=== PATIENT | male | born 1935 | race Caucasian/White ===

== ENCOUNTER 2016-10-02 04:01 | Emergency (ER) | payer MEDICARE, BC ==
--- NOTE | 2016-10-02 04:20 | ERNOTE ---
Chest Pain/Cardiac HPI Chief Complaint: Chest Pain Time Seen by Provider: 10/02/16 04:18 Source: patient Exam Limitations: no limitations Allergies/Adverse Reactions: Allergies No Known Allergies Allergy (Verified 10/02/16 06:28) Home Medications: HOME MEDICATIONS Azithromycin [Zithromax] 250 mg PO DAILY #4 tablet 10/02/16 [Last Taken Unknown] Methylprednisolone [Medrol Dosepak] 4 mg PO DAILY #21 tab.ds.pk 10/02/16 [Last Taken Unknown] Narrative: Pt had sharp left sided chest pain this evening, EMS admistered nitro and pain is relieved prior to arrival in ED. Timing: resolved prior to arrival - after nitro given by EMS Severity/Quality: moderate, sharp, stabbing Location: left chest Chest Pain Radiation: no radiation Activities at Onset: none Modifying Factors - Improves: Present: nitroglycerin Modifying Factors - Worsens: Present: breathing, coughing, movement Associated Symptoms: Present: cough Review of Systems - Review of Systems Constitutional: Present: fever EYE: Present: no symptoms reported ENT: Present: nasal drainage Respiratory: Present: shortness of breath, cough Cardiology: Present: See HPI Gastrointestinal/Abdominal: Present: no symptoms reported Genitourinary: Present: no symptoms reported Musculoskeletal: Present: no symptoms reported Skin: Present: no symptoms reported Neurological: Present: no symptoms reported Endocrine: Present: no symptoms reported Hematologic/Lymphatic: Present: no symptoms reported Psych: Present: no symptoms reported - Patient's Past Medical History Patient History - Cardiac/Respiratory: Arrhythmias Patient History - Surgical Procedures: Pacemaker - Social History Smoking Status: Light tobacco smoker Physical Exam - Physical Exam General Appearance: Present: wd/wn, alert, no apparent distress Ears, Nose, Throat: Present: nasal congestion, normal pharynx Neck: Present: normal inspection, nontender Respiratory: Present: no respiratory distress, normal breath sounds, decreased breath sounds - bilateral Cardiovascular/Chest: Present: regular rate, rhythm, no murmur, normal peripheral pulses Back Exam: Present: normal inspection, normal range of motion Extremity Exam: Present: normal inspection, non-tender, no edema Neurological Exam: Present: alert, oriented, normal mood/affect, no motor/ sensory deficits Skin Exam: Present: normal color, warm/dry Lymphatic Exam: Present: no adenopathy ED Progress - Results and Orders Patient's Lab Results:: I have reviewed the patient's lab results. Results and Orders: Laboratory Tests 10/02/16 10/02/16 04:37 04:37 WBC 14.4 H Hgb 10.2 L Hct 29.6 L Plt Count 189 Neutrophils % 82.7 H Sodium 136 Potassium 3.7 Chloride 102 BUN 9 Creatinine 0.99 Calcium 8.3 Total Bilirubin 0.8 AST 13 ALT 14 L Alkaline Phosphatase 73 Troponin I Less than 0.017 Total Protein 6.3 Albumin 3.1 L - Vital Signs Patient's Vital Signs:: I have reviewed the patient's vital signs. - EKG EKG: other - paced rhythm EKG read: Interp. by me - X-Ray X-Ray #1 X-Ray: chest Interpretation: Interp. by me X-ray Comments: No infiltrate or effusion Departure - Departure Clinical Impression: Acute exacerbation of chronic obstructive bronchitis Disposition: Home Follow Up Needed Condition: Good Instructions: Chronic Obstructive Pulmonary Disease Exacerbation, [id number] Additional Instructions: begin medrol dose pack today. Start antibiotics tomorrow as the first dose was given to you in the ER. follow up with your regular doctor in 5-7 days or sooner if not improving. Prescriptions: Azithromycin [Zithromax] 250 mg PO DAILY #4 tablet Methylprednisolone [Medrol Dosepak] 4 mg PO DAILY #21 tab.ds.pk
[2016-10-02 04:36] LABS: Hematocrit 29.6 % (42.0-52.0); Hemoglobin 10.2 gm/dL (13.5-18.0); Mean Cell Volume 91.4 fl (78-100); Mean Corpuscular Hemoglobin 31.5 pg (27-31); Mean Corpuscular Hgb Conc 34.5 g/dl (32-36); Mean Platelet Volume 9.7 fl (6.0-9.5); NRBC# 0.1 k/mm3 (0-1); Neutrophil # 11.9 K/mm3 (1.3-6.0); Neutrophil % 82.7 % (42-75.0); Platelet Count 189 K/mm3 (150-450); Red Blood Count 3.24 M/mm3 (4.7-6.0); Red Cell Distribution Width 15.7 % (11.5-14.0); White Blood Count 14.4 K/mm3 (4.0-10.5)
[2016-10-02 04:54] LABS: ALT 14 U/L (19-67); AST 13 U/L (0-48); Albumin * 3.1 gm/dl (3.4-5.0); Alkaline Phosphatase * 73 U/L (50-170); Anion Gap 13.4 mmol/L (6.8-13.8); BUN/Creatinine Ratio 9.1 (9.0-21.6); Bilirubin, Total 0.8 mg/dL (0.0-1.1); Blood Urea Nitrogen 9 mg/dL (6-23); Ca. Corrected For Albumin 8.7 mg/dL (8.4-10.2); Calcium * 8.3 mg/dL (7.9-10.9); Carbon Dioxide 24.3 mmol/L (24-32.6); Chloride 102 mmol/L (97-106); Glucose * 100 mg/dL (70-110); Potassium 3.7 mmol/L (3.4-4.6); Sodium 136 mmol/L (132-142); Total Protein 6.3 gm/dL (6.2-8.2)
[2016-10-02 04:56] LABS: Troponin I Less than 0.017 ng/ml (0.00-0.10)
[2016-10-02] MEDS ORDERED: AZITHROMYCIN 250 MG TABLET PO ONE (06:34)
[2016-10-02] MEDS ORDERED: AZITHROMYCIN 250 MG TABLET ONE (06:51)
[2016-10-02 06:53] VITALS: BP 130/57
== END 2016-10-02 07:08 | disposition home or self-care (01) ==
LOC: ER 04:01
DX: J44.1 Chronic obstructive pulmonary disease with (acute) exacerbation (principal); F17.210 Nicotine dependence, cigarettes, uncomplicated; Z95.0 Presence of cardiac pacemaker

== ENCOUNTER 2017-05-20 20:55 | Emergency (ER) | payer MEDICARE, BC ==
--- NOTE | 2017-05-20 21:13 | ERNOTE ---
Syncope ER HPI Stated Complaint: FALL HEAD /LOSS OF CON Time Seen by Provider: 05/20/17 21:06 Source: patient Exam Limitations: no limitations Immunizations: IMMUNIZATION HX Immunizations Up to Date Yes History of Influenza Vaccine Yes Hx Pneumococcal Vaccination Yes Allergies/Adverse Reactions: Allergies No Known Allergies Allergy (Verified 05/20/17 21:19) Home Medications: HOME MEDICATIONS Azithromycin [Zithromax] 250 mg PO DAILY #4 tablet 10/02/16 [Last Taken Unknown] Methylprednisolone [Medrol Dosepak] 4 mg PO DAILY #21 tab.ds.pk 10/02/16 [Last Taken Unknown] traMADol HCL [Ultram] 50 - 100 mg PO QID PRN #20 tab 05/21/17 [Last Taken Unknown] - History of Present Illness Narrative: Pt states he was going out the back door and tripped somehow striking his face. He believes he had short LOC. He drove himself to the ED Prior Episodes: Present: single episode today Symptoms prior to episode: Present: none Activity at time of episode: Present: standing Character of event: Present: brief (seconds) Location of Injury: Present: neck Current Symptoms: Present: back to normal Review of Systems - Review of Systems Constitutional: Absent: recent illness EYE: Absent: eye pain ENT: Present: no symptoms reported Respiratory: Present: no symptoms reported Cardiology: Present: no symptoms reported - Patient's Past Medical History Patient History - Medical: Arthritis Patient History - Cardiac/Respiratory: Asthma Patient History - Cancer: Skin Patient History - Surgical Procedures: Pacemaker Patient History - Other: None - Social History Living Situations: other Psych History: No pertinent hx Alcohol Use: none - Immunizations Immunizations Up to Date: Yes Hx Pneumococcal Vaccination: Yes History of Influenza Vaccine: Yes Physical Exam - Physical Exam General Appearance: Present: wd/wn, alert, no apparent distress Head Exam: Present: contusions, ecchymosis - nose and left forehead/ jain. Absent: active bleeding, Bustos's Sign, lacerations, raccoon eyes, swelling Eye Exam: Normal inspection: bilateral, PERRL: bilateral, EOMI: bilateral Neck: Present: normal inspection, nontender, supple, full range of motion Respiratory: Present: no respiratory distress Back Exam: Present: normal inspection, normal range of motion, no CVA tenderness , no vertebral tenderness Extremity Exam: Present: normal range of motion, no edema. 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 Results and Orders: Laboratory Tests 05/20/17 05/20/17 05/20/17 21:18 21:18 22:35 WBC 8.3 Hgb 11.6 L Hct 33.6 L Plt Count 221 Sodium 140 Potassium 4.1 Chloride 102 Carbon Dioxide 28.3 Anion Gap 13.8 BUN 11 Creatinine 1.27 Est GFR (Non-Af Amer) 58 L D Random Glucose 107 Calcium 8.3 Total Bilirubin 0.8 AST 13 ALT 16 L Alkaline Phosphatase 76 Total Protein 6.8 Albumin 4.2 Urine Color Yellow Urine Appearance Clear Urine pH 6.0 Ur Specific [place] 1.010 Urine Protein Negative Urine Glucose (UA) Negative Urine Ketones Negative Urine Blood Negative Urine Nitrate Negative Urine Bilirubin Negative Urine Urobilinogen Normal Ur Leukocyte Esterase Negative Urine RBC None seen Urine WBC None seen Ur Epithelial Cells None seen Urine Bacteria Trace Urine Culture Comments No culture indicated Ethyl Alcohol Less than 3.0 - Vital Signs Patient's Vital Signs:: I have reviewed the patient's vital signs. - CT/Ultrasound CT/Ultrasound Narrative: CT head: No acute intracranial pathology. Chronic findings: encephalomalacia consistent with remote infarctions volume loss appropriate with age old healed right zygomatic arch fracture Nasal bone fracture with displacement and angulation of unknown age Sinus mucosal thickening - Progress/Reassessment Progress:: Improved Departure Clinical Impression: Nasal bone fracture Qualifiers: Encounter type: initial encounter Fracture type: closed Qualified Code(s): S02.2XXA - Fracture of nasal bones, initial encounter for closed fracture Abrasion of face Qualifiers: Encounter type: initial encounter Qualified Code(s): S00.81XA - Abrasion of other part of head, initial encounter - Departure Disposition: Home Follow Up Needed Condition: Good Instructions: Nasal Fracture, Abrasion, [id number] Additional Instructions: Call Dr. Collins's office for follow up on your nose. Referrals: Umm Hollis MD [Primary Care Provider] - Prescriptions: traMADol HCL [Ultram] 50 - 100 mg PO QID PRN #20 tab PRN Reason: Pain
[2017-05-20 21:20] LABS: Hematocrit 33.6 % (42.0-52.0); Hemoglobin 11.6 gm/dL (13.5-18.0); Mean Cell Volume 93.3 fl (78-100); Mean Corpuscular Hemoglobin 32.2 pg (27-31); Mean Corpuscular Hgb Conc 34.5 g/dl (32-36); Mean Platelet Volume 9.7 fl (6.0-9.5); NRBC# 0.1 k/mm3 (0-1); Neutrophil # 5.2 K/mm3 (1.3-6.0); Neutrophil % 62.6 % (42-75.0); Platelet Count 221 K/mm3 (150-450); Red Cell Distribution Width 15.9 % (11.5-14.0); White Blood Count 8.3 K/mm3 (4.0-10.5)
[2017-05-20 21:34] LABS: ALT 16 U/L (19-67); AST 13 U/L (0-48); Albumin * 4.2 gm/dl (3.4-5.0); Alkaline Phosphatase * 76 U/L (50-170); Anion Gap 13.8 mmol/L (6.8-13.8); BUN/Creatinine Ratio 8.7 (9.0-21.6); Bilirubin, Total 0.8 mg/dL (0.0-1.1); Blood Urea Nitrogen 11 mg/dL (6-23); Ca. Corrected For Albumin 7.8 mg/dL (8.4-10.2); Calcium * 8.3 mg/dL (7.9-10.9); Carbon Dioxide 28.3 mmol/L (24-32.6); Chloride 102 mmol/L (97-106); Glucose * 107 mg/dL (70-110); Potassium 4.1 mmol/L (3.4-4.6); Sodium 140 mmol/L (132-142); Total Protein 6.8 gm/dL (6.2-8.2)
[2017-05-20 22:44] LABS: Urine Bilirubin Negative (NEGATIVE); Urine Blood Negative /ul (NEGATIVE); Urine Ketone Negative (NEGATIVE); Urine Nitrite Negative (NEGATIVE); Urine Protein Negative (NEGATIVE); Urine Urobilinogen Normal (NORMAL)
[2017-05-20 22:50] LABS: Urine Appearance Clear; Urine Bacteria TRACE; Urine Color Yellow; Urine RBC None Seen /hpf (0-5); Urine WBC None Seen /hpf (0-5)
[2017-05-20 23:52] VITALS: BP 145/60
[2017-05-20] MEDS ORDERED: traMADol HCL 50 MG TABLET PO ONE (23:58)
[2017-05-21] MEDS ORDERED: traMADol HCL 50 MG TABLET ONE (00:02)
== END 2017-05-21 00:09 | disposition home or self-care (01) ==
LOC: ER 20:55
DX: S02.2XXA Fracture of nasal bones, initial encounter for closed fracture (principal); S00.81XA Abrasion of other part of head, initial encounter; Z95.0 Presence of cardiac pacemaker; Z85.828 Personal history of other malignant neoplasm of skin; W01.10XA Fall on same level from slipping, tripping and stumbling with subsequent striking against unspecified object, initial encounter
CPT/HCPCS: 36415; 70450; 80053; 81001; 85025; 94762; 99283; G0481

== ENCOUNTER 2018-08-02 06:13 | Inpatient (IN) | payer BC, MEDICARE ==
--- NOTE | 2018-07-14 09:32 | ANES ---
Anesthesia Pre Procedure Eval HOME MEDICATIONS aspirin 81 mg tablet,delayed release 81 mg PO DAILY #90 tab 04/02/18 [Last Taken Unknown] lovastatin 20 mg tablet 20 mg PO DAILY #90 tab 04/02/18 [Last Taken Unknown] metoprolol tartrate 50 mg tablet 50 mg PO BID #180 tab 04/02/18 [Last Taken Unknown] tamsulosin 0.4 mg capsule 0.4 mg PO DAILY #90 cap 04/02/18 [Last Taken Unknown] amlodipine 5 mg tablet 2.5 mg PO DAILY tab 04/27/18 [Last Taken Unknown] gabapentin 100 mg capsule 200 mg PO BID cap 04/27/18 [Last Taken Unknown] lisinopril 10 mg-hydrochlorothiazide 12.5 mg tablet 0.5 tab PO DAILY tab 04/27/18 [Last Taken Unknown] omeprazole 20 mg capsule,delayed release 20 mg PO BID cap 04/27/18 [Last Taken Unknown] hydrocodone 5 mg-acetaminophen 325 mg tablet 1 tab PO TID PRN #90 tab 07/06/18 [Last Taken Unknown] acetaminophen 325 mg tablet See Rx Instructions PO .COMPLEX PRN 07/08/18 [Last Taken Unknown] cetirizine 10 mg capsule 10 mg PO DAILY PRN cap 07/08/18 [Last Taken Unknown] ibuprofen 200 mg capsule See Rx Instructions PO Q8H PRN 07/08/18 [Last Taken Unknown] Allergies/Adverse Reactions: Allergies Allergy/AdvReac Type Severity Reaction Status Date / Time simvastatin Allergy Mild unknown Verified 07/14/18 08:36 - Planned Procedure Planned Procedure: Right Total Hip Arthroplasty Medication List Reviewed:: Yes Allergies Verified: Yes Medical History (Last Reviewed 07/14/18 @ 09:32 by Rangel Bustos CRNA) COPD (chronic obstructive pulmonary disease) (Chronic) Hypertension (Chronic) Chronic pain syndrome (Chronic) Degenerative joint disease (DJD) of lumbar spine (Chronic) BPH (benign prostatic hyperplasia) Onset Date: 09/07/12 Biventricular automatic implantable cardioverter defibrillator in situ Onset Date: 08/18/12 CAD (coronary artery disease) Onset Date: 08/18/12 Chronic GERD Onset Date: ~09/07/12 Hyperlipidemia due to dietary fat intake Onset Date: ~09/07/12 Hypertension Onset Date: ~09/07/12 LBBB (left bundle branch block) Onset Date: 12/03/16 LV dysfunction Onset Date: 08/18/12 Osteoarthritis Onset Date: Unknown Rt hip; cervical neck Pacemaker Onset Date: Unknown Paroxysmal ventricular tachycardia Onset Date: 09/07/12 Syncope and collapse Onset Date: 08/18/12 Surgical History (Last Reviewed 07/14/18 @ 09:32 by Rangel Bustos CRNA) History of bilateral cataract extraction Onset Date: 2017 [facility]; 11/10/2017, 11/17/2017 History of hammertoe correction right foot, early 2000s Hx of appendectomy Onset Date: 1949 Hx of cardiac catheterization Onset Date: 12/23/10 Left; Dr.Francis Eamon Dixon Hx of colonoscopy with polypectomy Onset Date: 11/27/08 ; polyp was benign- recheck in 10 years Hx of hernia repair Onset Date: Unknown Family History (Last Reviewed 07/14/18 @ 09:32 by Rangel Bustos CRNA) Father , @ age 45 Myocardial infarction Alcohol abuse Mother , @ age 80 CVA (cerebral vascular accident) Heart disease - Family Anesthesia History Family History:: no untoward family reactions to anesthesia, no familial bleeding tendencies, no family history of clotting disorders, no family history of premature - Airway/Neck/Teeth Within Normal Limits:: Yes Mallampatti Score: 2 Thyromental (T-M) distance: > 6 cm Mandibulo Hyoid distance: > 3 cm - Respiratory Smoking Status: Current every day smoker Discussed smoking cessation including day of surgery: Yes Sleep Apnea currently treated: No Sleep Apnea by current assessment: No Discussed Risks/Treatment of JENNIFER: No - Cardiovascular Tolerates Activity: Fair - Anesthesia Assessment and Plan ASA Class: PS, IV Anesthesia Type Plan: Spinal
[~2018-08-02 06:13] MED LIST: ROPIVACAINE HCL/PF 100 MG, EPINEPHrine 0.2 MG in NORMAL SALINE 100 ML IJ PRN; TRANEXAMIC ACID 1,000 MG in NORMAL SALINE 100 ML IV PRN; ceFAZolin SODIUM 1 GM VIAL IV PRN
[2018-08-02] MEDS: RINGER'S SOLUTION,LACTATED 1,000 ML IV PRN ×2 (07:19→08:33)
[2018-08-02] MEDS ORDERED: MAGNESIUM HYDROXIDE 30 ML UDC PO PRN (09:54)
[2018-08-02] MEDS ORDERED: ACETAMINOPHEN 500 MG TABLET PO PRN (09:54)
[2018-08-02] MEDS ORDERED: MAG HYDROX/ALUMINUM HYD/SIMETH 30 ML UDC PO PRN (09:54)
[2018-08-02] MEDS ORDERED: ZOLPIDEM TARTRATE 5 MG TABLET PO PRN (09:54)
[2018-08-02] MEDS ORDERED: ONDANSETRON HCL/PF 2 MG/ML VIAL IV PRN (09:54)
[2018-08-02] MEDS ORDERED: MORPHINE SULFATE 2 MG/ML DISP.SYRIN IV PRN (09:54)
[2018-08-02] MEDS ORDERED: diphenhydrAMINE HCL 50 MG/ML VIAL IV PRN (09:54)
[2018-08-02] MEDS ORDERED: LORATADINE 10 MG TABLET PO PRN (09:56)
--- NOTE | 2018-08-02 10:01 | OR ---
Operative Report - Dictated Report Narrative: Date: 08/02/2018 Preoperative diagnosis: Right hip degenerative joint disease. Postoperative diagnosis: Right hip degenerative joint disease. Procedure: Right Total hip arthroplasty. Surgeon: Gerard Diaz M.D. Compensation Administrator: Joe William PA-C (provided an essential educated skilled set of hands to assist with positioning, retraction, exposure, manipulation of the leg, irrigation, closure of wounds, and application of bandages which cannot be performed by the available surgical crew) Anesthesia: Spinal and local periarticular joint injection. Complications: None Specimens: Bone for disposal. Estimated blood loss: 100 milliliters. Retained implants: Depuy [place] size 7 femoral stem standard offset. Size 58 millimeter outside diameter 3-hole Sully Gription acetabular cup. 58 millimeter outside by 40 millimeter inside diameter highly cross-linked acetabular liner. 40 millimeter diameter +1.5 millimeter cobalt chromium femoral head. Cancellous 6.5mm screw 35, 25 millimeter lengths Indications: Mr. Owens is a 82-year-old gentleman who has had long-standing right hip pain and arthrosis. This patient was followed in my clinic for period of time with significant complaints of right hip pain consistent with arthritic changes. He failed conservative measures including but not limited to activity modification, passage of time, medications, and other conservative measures. Patient wished to proceed with surgical treatment. The risks, benefits, and alternatives were discussed in clinic. The risks of , blood clots, bleeding, infection, nerve/tendon blood vessel/ injury, malposition of components, dislocation and/or instability of joint, intraoperative fracture, postoperative limited range of motion, persistent pain, failure of components, and need for additional procedures. Patient wished to proceed. Consent was obtained after answering all questions. Procedure: After marking the correct extremity on the floor, the patient was taken to the operating room. A timeout was performed. IV antibiotics consisting of Ancef were administered prior to the procedure. A spinal anesthetic was induced by anesthesia. A Sauceda catheter was inserted. The patient was then transitioned to a lateral position on a well-padded pegboard. An axillary roll was placed. The head was in neutral position. The non- operative down leg was well-padded with SCD and RAHEEM hose in place. The arms were supported and padded to protect from any undue pressure on the bony prominences and nerves. A well-padded anterior and posterior pelvic and chest posts were secured in order to maintain a stable position of the pelvis. This was placed so that the pelvis was perpendicular to the floor. The body was in line with the pelvis. Once it was felt that we had protected all the bony prominences and the patient was well secured with a safety belt as well, the leg was pre-scrubbed with alcohol, prepped and draped in a standard sterile fashion. A standard anterior lateral hip incision was marked out over the greater trochanter. Ioban drapes were then placed. The skin incision was then made. Sharp dissection with a scalpel utilizing cautery for hemostasis was carried out down to the gluteus and iliotibial band fascia. This was split in line with the skin incision. The greater trochanter bursa was excised. The anterior and posterior margins of the abductor tendon were identified. The anterior 1/2-1/3 of the tendon was tagged and reflected off the greater trochanter leaving a sleeve of tendon for repair at the completion of the case. This exposed the underlying hip joint capsule. A limb length stitch was placed in the skin and referencedd off a naya on the greater trochanter for evaluation of intraoperative limb lengths. An inverted T-type capsulotomy was made extending this up to the brim of the acetabulum. Using Homans to assist with elevation of the soft tissues off the anterior, superior, and inferior aspects of the femoral neck, the hip was then placed in a figure 4 position and the femoral head was dislocated. With the leg in an externally rotated and adducted position, the cutting flag was utilized in order to naya for a standard femoral neck cut approximately a fingerbreadth above the level of the lesser trochanter. This was done with reference to pre-operative films and overall alignment. This was done while protecting the surrounding soft tissues with Homans. The femoral head was then removed and sized for guidance on preparation of the acetabulum. It was noted that there was loss of articular cartilage on both the femoral head and weightbearing portions of the acetabulum. We then returned the leg to the table and turned our attention to the acetabulum. While protecting the surrounding soft tissues, the labrum and remaining tissue in the fovea were excised using a scalpel and cautery. A series of reamers up to size 58 millimeter were utilized to prepare the acetabulum. The final reamer had good purchase and exposed the bleeding subchondral bone. The acetabulum was then thoroughly irrigated ensuring that all bony and cartilaginous materials were removed, and the final acetabular shell was impacted into place. This was placed in approximately 45 degrees of abduction and 20 degrees of anteversion utilizing the outrigger and body axis for alignment. This had a good press fit. 2 6.5mm cancellous screw was placed in the superior posterior quadrant of the acetabulum. The shell was then thoroughly irrigated and the final polyethylene was impacted into place ensuring that it seated completely. This was then protected with a sponge while we returned our attention to the femur. With the leg in a figure 4 position, utilizing Homans for soft tissue protection, a box cutting osteotome, followed by Charnley awl, followed by serial reamers and broaches were utilized in order to prepare the femur. It was found that a size 7 broach gave good axial and rotational stability. The calcar reamer was utilized in order to clean up the cut edges. The proximal femur was visualized to ensure that there were no signs of fracture. A series of heads and necks were trialed. It was found that a standard neck and a + 1.5 femoral head gave good overall stability. There was minimal longitudinal instability. With the leg in the position of sleep, the femoral head was well covered. Hip range of motion was able to reach full extension and external rotation to greater than 75 degrees prior to impingement along the posterior acetabulum. The hip was able to be flexed to greater than 90 degrees with internal rotation greater than 60 degrees prior to anterior impingement. The limb lengths were near equal based on comparison to the contralateral side and the prior placed limb length stitch. At this point it was felt these were the appropriately sized femoral components as well as neck and femoral head. The trial implants were removed. The femur was thoroughly irrigated. The final implants were impacted into place, and the hip was reduced. After ensuring that there was no damage to the proximal femur, the standard periarticular joint injection of ropivacaine, Toradol, and epinephrine were injected into the joint capsule and surrounding soft tissues. Anesthesia then administered intravenous tranexamic acid. The capsule was repaired with a single interrupted #1 Vicryl. The abductor tendon was repaired to the greater trochanter utilizing #5 Ethibond through drill holes. This was oversewn with #1 Vicryl. The fascia was closed with interrupted #1 Vicryl. The wounds were thoroughly irrigated as we closed in layers. The deep and subcutaneous fat layers were closed with 0 and 3-0 Vicryl respectively. The subcutaneous tissue was closed with a running 3-0 Vicryl and the skin with sammy. All sponge, needle, blade, and instrument counts were correct prior to closing the wounds. Sterile dressings consisting of Xeroform, 4 x 4's, and tape were applied. The patient was awoken and transferred to her hospital bed and then to the postanesthesia care unit in stable condition. Postoperative condition: The plan is to admit to the medical/surgical inpatient floor postoperatively. There will be a projected 1 to 3 day hospital stay. Postoperatively 24 hours of IV antibiotics, pain control, physical therapy, occupational therapy, and medical comanagement will be utilized. Patient will be weightbearing as tolerated with anterior hip precautions. Postoperative films will be obtained in the recovery room.
--- NOTE | 2018-08-02 10:18 | ANES ---
Post Anesthesia Discharge - Transfer of Care Transfer of Care handoff given to nurse: Yes - Discharge from PACU Discharge from PACU when meets criteria: Yes
[2018-08-02] MEDS: DEXTROSE 5%-LACTATED RINGERS 1,000 ML IV PRN ×2 (11:09→21:38)
[2018-08-02] MEDS: ceFAZolin SODIUM 1 GM in DEXTROSE 5 % IN WATER 100 ML IV SCH ×6 (11:17→23:38)
[2018-08-02] MEDS: KETOROLAC TROMETHAMINE 15 MG/ML VIAL IV SCH ×3 (11:18→23:40)
[2018-08-02] MEDS: oxyCODONE HCL/ACETAMINOPHEN 1 TAB TABLET PO PRN ×2 (11:44→15:50)
--- NOTE | 2018-08-02 13:10 | ANES ---
Post Anesthesia Assessment - Vital Signs Vitals: Last Vital Signs Temp 36.0 C 08/02/18 10:20 Pulse 65 08/02/18 11:00 Resp 16 08/02/18 10:45 BP 137/76 08/02/18 11:00 Pulse Ox 99 08/02/18 11:00 Airway Patency: Normal - Mental Status Level Of Consciousness: Awake - Pain Level Pain Score: 0 - N/V Assessment Nausea/Vomiting Presence: None Dehydration:: No
[2018-08-02] MEDS: TAMSULOSIN HCL 0.4 MG CAP.SR.24H PO SCH (18:06)
[2018-08-02] MEDS: GABAPENTIN 100 MG CAPSULE PO SCH (20:29)
[2018-08-02] MEDS: METOPROLOL TARTRATE 50 MG TABLET PO SCH (20:30)
[2018-08-02] MEDS: SENNOSIDES/DOCUSATE SODIUM 1 TAB TABLET PO SCH (20:31)
[2018-08-02] MEDS: PANTOPRAZOLE SODIUM 20 MG TABLET.DR PO SCH (20:31)
[2018-08-03] MEDS: oxyCODONE HCL/ACETAMINOPHEN 1 TAB TABLET PO PRN ×3 (03:24→17:07)
[2018-08-03] MEDS: KETOROLAC TROMETHAMINE 15 MG/ML VIAL IV SCH ×4 (05:06→23:18)
[2018-08-03 05:34] LABS: Hematocrit 26.1 % (42.0-52.0); Hemoglobin 8.9 gm/dL (13.5-18.0); Mean Cell Volume 93.9 fl (78-100); Mean Corpuscular Hgb Conc 34.1 g/dl (32-36); Mean Platelet Volume 10.1 fl (8-11.3); Platelet Count 169 K/mm3 (150-450); Red Blood Count 2.78 M/mm3 (4.7-6.0); Red Cell Distribution Width 15.4 % (11.5-14.0); White Blood Count 8.6 K/mm3 (4.0-10.5)
[2018-08-03 05:38] LABS: Anion Gap 9.2 mmol/L (6.8-13.8); BUN/Creatinine Ratio 12.6 (9.0-21.6); Calcium * 8.2 mg/dL (7.9-10.9); Carbon Dioxide 27.8 mmol/L (24-32.6); Estimated Creat Clear 52.6
[2018-08-03] MEDS: PANTOPRAZOLE SODIUM 20 MG TABLET.DR PO SCH ×2 (06:45→20:30)
--- NOTE | 2018-08-03 08:09 | PN ---
Subjective - Date and Time Seen Date: 08/03/18 Time: 08:06 Subjective Narrative: Subjective: Reports mild discomfort. Was able to walk in the room with therapy. Pain is well-controlled. Voiding without any complications. Tolerating by mouth intake. Denies any nausea or vomiting. Denies calf pain. Slept well. Physical exam: Alert and oriented to person, place and time Right lower Extremity: Palpable dorsalis pedis pulse. Sensation grossly intact to light touch. Dressings clean and dry. Able to flex and extend ankle and toes. No excessive drainage. Calf and thigh are soft and nontender. Assessment: Postop day 1 status post right total hip arthroplasty. Plan: Due to the need for pain control, post-operative limited mobility, protection of the surgical site and joint, monitoring of the wound, and the management of chronic medical conditions, he requires continued inpatient care. Continue with physical and occupational therapy weightbearing as tolerated. Continue with anticoagulation. 24 hours postoperative prophylactic antibiotics. Pain control with goal to rely on oral medications. Continue bowel regimen. Will need 6 weeks with walker or assitive device to protect joint while ambulating during the recovery process. Discharge planning. Discontinue Sauceda catheter. Repeat hemogram in a.m. in order to monitor for postoperative anemia. Objective - Vitals Vitals: Last Vital Signs Temp 37.1 C 08/03/18 00:32 Pulse 65 08/03/18 04:51 Resp 16 08/03/18 04:51 BP 136/58 08/03/18 04:51 Pulse Ox 94 08/03/18 04:51 - Abnormal Lab Findings Abnormal Lab Findings: Abnormal Lab Results 08/03/18 Range/Units 05:15 RBC 2.78 L (4.7-6.0) M/mm3 Hgb 8.9 L (13.5-18.0) gm/dL Hct 26.1 L (42.0-52.0) % MCH 32.0 H (27-31) pg RDW 15.4 H (11.5-14.0) % - Exam Constitutional: Present: Alert, Oriented x3 Cauti Physician Documentation - Urinary Catheter Management Urethral (Sauceda) Date of Insertion: 08/02/18 Time of Insertion: 08:15 Date of Removal: 08/03/18 Time of Removal: 05:16 Assessment/Plan - Problems/Diagnosis (1) Status post total hip replacement, right Problem: Acute (2) Acute blood loss anemia Problem: Acute (3) COPD (chronic obstructive pulmonary disease) Problem: Chronic Qualifiers: (4) Degenerative joint disease (DJD) of lumbar spine Problem: Chronic Qualifiers: (5) Hypertension Problem: Chronic Qualifiers: (6) Presence of combination internal cardiac defibrillator (ICD) and pacemaker Problem: Chronic
[2018-08-03] MEDS ORDERED: NON-FORMULARY 1 DOSE DOSE (Lisinopril/Hydrochlorothiazide [Lisinopril-Hctz 10-12.5 Mg Tab] PO SCH (09:00)
[2018-08-03] MEDS: GABAPENTIN 100 MG CAPSULE PO SCH ×2 (09:33→20:30)
[2018-08-03] MEDS: ENOXAPARIN SODIUM 40 MG/0.4 ML SYRG SC SCH (09:33)
[2018-08-03] MEDS: METOPROLOL TARTRATE 50 MG TABLET PO SCH ×2 (09:34→20:30)
[2018-08-03] MEDS: amLODIPine BESYLATE 5 MG TABLET PO SCH (09:34)
[2018-08-03] MEDS: HYDROCHLOROTHIAZIDE 25 MG TABLET PO SCH (09:34)
[2018-08-03] MEDS: FERROUS SULFATE 325 MG TABLET PO SCH ×2 (09:34→17:07)
[2018-08-03] MEDS: LISINOPRIL 5 MG TABLET PO SCH (09:34)
[2018-08-03] MEDS: TAMSULOSIN HCL 0.4 MG CAP.SR.24H PO SCH (17:08)
[2018-08-03] MEDS: SENNOSIDES/DOCUSATE SODIUM 1 TAB TABLET PO SCH (20:29)
[2018-08-04] MEDS: KETOROLAC TROMETHAMINE 15 MG/ML VIAL IV SCH (04:31)
[2018-08-04 05:21] LABS: Hemoglobin 8.2 gm/dL (13.5-18.0); Mean Cell Volume 94.1 fl (78-100); Mean Corpuscular Hemoglobin 32.4 pg (27-31); Mean Corpuscular Hgb Conc 34.5 g/dl (32-36); Mean Platelet Volume 9.8 fl (8-11.3); Platelet Count 130 K/mm3 (150-450); Red Blood Count 2.53 M/mm3 (4.7-6.0); Red Cell Distribution Width 15.5 % (11.5-14.0)
[2018-08-04] MEDS: oxyCODONE HCL/ACETAMINOPHEN 1 TAB TABLET PO PRN (06:42)
[2018-08-04] MEDS: PANTOPRAZOLE SODIUM 20 MG TABLET.DR PO SCH ×2 (06:42→20:33)
[2018-08-04] MEDS: GABAPENTIN 100 MG CAPSULE PO SCH ×2 (08:04→20:32)
[2018-08-04] MEDS: METOPROLOL TARTRATE 50 MG TABLET PO SCH ×2 (08:05→20:32)
[2018-08-04] MEDS: LISINOPRIL 5 MG TABLET PO SCH (08:05)
[2018-08-04] MEDS: HYDROCHLOROTHIAZIDE 25 MG TABLET PO SCH (08:06)
[2018-08-04] MEDS: FERROUS SULFATE 325 MG TABLET PO SCH ×2 (08:06→18:05)
[2018-08-04] MEDS: amLODIPine BESYLATE 5 MG TABLET PO SCH (08:07)
[2018-08-04] MEDS: ENOXAPARIN SODIUM 40 MG/0.4 ML SYRG SC SCH (08:07)
[2018-08-04 08:26] LABS: Hematocrit 23.8 % (42.0-52.0)
--- NOTE | 2018-08-04 11:38 | PN ---
Subjective - Date and Time Seen Date: 08/04/18 Time: 11:34 Subjective Narrative: Patient reports he is able walk with therapy and do some stairs. He reports his pain is adequately controlled. No nausea or vomiting. No complaints. Objective Objective Narrative: Bandages clean and dry intact. Neurovascular intact right lower extremity. Calf Supple. Able plantarflex and dorsiflex ankle. Currently up in chair and oriented in no distress. - Vitals Vitals: Last Vital Signs Temp 37.0 C 08/04/18 10:09 Pulse 66 08/04/18 10:09 Resp 16 08/04/18 10:09 BP 105/43 08/04/18 10:09 Pulse Ox 94 08/04/18 10:09 - Abnormal Lab Findings Abnormal Lab Findings: Abnormal Lab Results 08/04/18 Range/Units 05:18 RBC 2.53 L (4.7-6.0) M/mm3 Hgb 8.2 L (13.5-18.0) gm/dL Hct 23.8 L* (42.0-52.0) % MCH 32.4 H (27-31) pg RDW 15.5 H (11.5-14.0) % Plt Count 130 L (150-450) K/mm3 Cauti Physician Documentation - Urinary Catheter Management Urethral (Sauceda) Date of Insertion: 08/02/18 Time of Insertion: 08:15 Date of Removal: 08/03/18 Time of Removal: 05:16 Assessment/Plan - Problems/Diagnosis (1) Status post total hip replacement, right Problem: Acute Narrative: Continue physical therapy, anticoagulation, pain control. Keep bandage is clean and dry. Patient is set to go to the [facility] tomorrow for progressive rehabilitation. 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
[2018-08-04] MEDS: TAMSULOSIN HCL 0.4 MG CAP.SR.24H PO SCH (18:05)
[2018-08-04] MEDS: SENNOSIDES/DOCUSATE SODIUM 1 TAB TABLET PO SCH (20:33)
[2018-08-05] MEDS: oxyCODONE HCL/ACETAMINOPHEN 1 TAB TABLET PO PRN ×2 (02:59→07:20)
[2018-08-05] MEDS: PANTOPRAZOLE SODIUM 20 MG TABLET.DR PO SCH (06:34)
--- NOTE | 2018-08-05 07:51 | DS ---
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 Owens was admitted to the floor after undergoing right total hip arthroplasty. Tolerated this well. Was admitted to the floor postoperatively for 24 hours of IV antibiotics, pain control, medical comanagement, and occupational and physical therapy. OT and PT were consulted to assist with activities of daily living and ambulation. Was made weightbearing as tolerated with anterior hip precautions and no active abduction. Pain was initially controlled with IV regimen. This was transitioned to oral once tolerating a by mouth intake. Was resumed on home diet and medications. Had a Sauceda catheter inserted and the operating room which was discontinued on postoperative day 1. Lovenox SCD and RAHEEM hose were utilized for DVT prophylaxis. Vital signs remained stable to the hospital course. Serial labs were obtained which showed a final hemoglobin of 8.2 grams. He was placed on iron to assist with replenished imaging his blood levels however he was asymptomatic and thus we did not feel a transfusion was necessary. BMP was reviewed and was stable. Physical examination throughout the hospital course showed an extremity that had sensation that was intact to light touch, palpable pulses, a benign wound, motor intact to the toes, ankle, and knee. Based on his home living situation, available assistance, and physical therapy goals, was felt that he would benefit from continued therapies at a [facility] facility. Instructions: Continue with weightbearing as tolerated and anterior hip precautions. Do not bathe or soak the wound. If there is any drainage from the wound keep the wound clean and dry and cover with dry gauze and tape. Change every 2-3 days as needed if there is any drainage. Cover wound while showering. Continue with physical therapy. Resume home diet. Report any fever over 101.5 Fahrenheit, uncontrolled pain, increased drainage, foul odor of drainage, new or increased calf pain or shortness of breath, or any other significant complaints. A 325mg dialy aspirin will be started after finishing anticoagulation if not allergic. Continue with RAHEEM hose on the operative extremity until instructed otherwise. No driving until instructed otherwise. Follow up in approximately 10-14 days. Procedures Performed: see notes below List Procedures: Right total hip arthroplasty Results and Findings: Lab Pending Results 08/03/18 05:15: WBC 8.6, RBC 2.78 L, Hgb 8.9 L, Hct 26.1 L, MCV 93.9, MCH 32.0 H, MCHC 34.1, RDW 15.4 H, Plt Count 169, MPV 10.1 08/03/18 05:15: Sodium 134, Plasma Sodium 134, Potassium 4.0, Chloride 101, Carbon Dioxide 27.8, Anion Gap 9.2, BUN 15, Creatinine 1.19, Est GFR (Non-Af Amer) 62, BUN/Creatinine Ratio 12.6, Random Glucose 109, Calcium 8.2 08/04/18 05:18: WBC 9.0, RBC 2.53 L, Hgb 8.2 L, Hct 23.8 L*, MCV 94.1, MCH 32.4 H, MCHC 34.5, RDW 15.5 H, Plt Count 130 L, MPV 9.8 Discharge Location: Other Disposition: SNF Condition: Good Level of Care: SNF Discharge Activity: Weight bearing, Other - anterior hip precautions with no active abduction Discharge Diet: General/regular food Correction Therapy: Physicial Therapy, Occupation Therapy Referrals: Duong Wolf DO [Primary Care Provider] - Additional Patient Instructions (free text): Follow up with Orthopedic Dr. Diaz Frannie08/17 at 10:45am. To [facility] for PT and OT to evaluate and treat. Ice machine as tolerated when sedentary, at least 4 hours a day, no maximum time. CPM 0-70 degrees flexion, progress as tolerated up to 110 increasing 10 degrees daily as tolerated, use 3 times a day for 1-2 hours at a time, may use longer periods or more often pending patients comfort. Prescriptions (Any new or edited meds): Enoxaparin Sodium [Lovenox] 40 mg SC Q24H #7 disp.syrin Ferrous Sulfate 325 mg PO BIDWM #60 tablet oxyCODONE HCL/ACETAMINOPHEN [Percocet 5 MG/325 MG] 2 tab PO Q4H PRN #60 tablet PRN Reason: Moderate Pain (Pain Scale 4-6) Sennosides/Docusate Sodium [Senokot-S] 2 tab PO HS #60 tablet Complete Home Medications List: Complete Home Medication List: lovastatin 20 mg tablet 20 mg PO DAILY #90 tab 04/02/18 metoprolol tartrate 50 mg tablet 50 mg PO BID #180 tab 04/02/18 tamsulosin 0.4 mg capsule 0.4 mg PO DAILY #90 cap 04/02/18 amlodipine 5 mg tablet 2.5 mg PO DAILY tab 04/27/18 gabapentin 100 mg capsule 200 mg PO BID cap 04/27/18 lisinopril 10 mg-hydrochlorothiazide 12.5 mg tablet 0.5 tab PO DAILY tab 04/27/18 cetirizine 10 mg capsule 10 mg PO DAILY PRN cap 07/08/18 ibuprofen 200 mg capsule See Rx Instructions PO Q8H PRN 07/08/18 Enoxaparin Sodium [Lovenox] 40 mg SC Q24H #7 disp.syrin 08/05/18 Ferrous Sulfate 325 mg PO BIDWM #60 tablet 08/05/18 Pantoprazole Sodium [Protonix] 20 mg PO BID@0700,2100 tablet. 08/05/18 Sennosides/Docusate Sodium [Senokot-S] 2 tab PO HS #60 tablet 08/05/18 oxyCODONE HCL/ACETAMINOPHEN [Percocet 5 MG/325 MG] 2 tab PO Q4H PRN #60 tablet 08/05/18
[2018-08-05] MEDS: GABAPENTIN 100 MG CAPSULE PO SCH (08:51)
[2018-08-05] MEDS: LISINOPRIL 5 MG TABLET PO SCH (08:52)
[2018-08-05] MEDS: METOPROLOL TARTRATE 50 MG TABLET PO SCH (08:52)
[2018-08-05] MEDS: HYDROCHLOROTHIAZIDE 25 MG TABLET PO SCH (08:54)
[2018-08-05] MEDS: FERROUS SULFATE 325 MG TABLET PO SCH (08:54)
[2018-08-05] MEDS: amLODIPine BESYLATE 5 MG TABLET PO SCH (08:54)
[2018-08-05] MEDS: ENOXAPARIN SODIUM 40 MG/0.4 ML SYRG SC SCH (08:55)
[2018-08-05 09:58] VITALS: BP 117/54
== END 2018-08-05 11:30 | DRG 470 ==
LOC: EDBD → MS 06:13
PROVIDERS: ADMIT Orthopaedic Surgery; ATTEND Orthopaedic Surgery
CPT/HCPCS: 36415; 73502; 80048; 85027; 97110; 97116; 97162; 97165; 97535